=== PATIENT | female | born 1990 | race African-American/Black ===

== ENCOUNTER 2016-12-25 09:24 | Emergency (ER) | payer OTHER, MEDICAID ==
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
[2016-12-25 10:24] VITALS: BP 137/77
== END 2016-12-25 10:36 | disposition home or self-care (01) ==
LOC: ER 09:24
DX: S39.012A Strain of muscle, fascia and tendon of lower back, initial encounter (principal); R51 Headache; M54.9 Dorsalgia, unspecified; M54.5 Low back pain; Z3A.36 36 weeks gestation of pregnancy; V89.2XXA Person injured in unspecified motor-vehicle accident, traffic, initial encounter
CPT/HCPCS: 99283

== ENCOUNTER 2016-12-25 10:29 | Outpatient (CLI) | payer MEDICAID ==
[2016-12-25] MEDS ORDERED: ACETAMINOPHEN 325 MG TABLET ONE (11:31)
[2016-12-25] MEDS ORDERED: ACETAMINOPHEN 325 MG TABLET PO ONE (11:31)
[2016-12-25 11:58] LABS: APPEARANCE,URINE CLEAR; BILIRUBIN,URINE NEGATIVE (NEGATIVE); GLUCOSE, URINE NEGATIVE (NEGATIVE); KETONES,URINE NEGATIVE (NEGATIVE); LEUKOCYTE ESTERASE,URINE NEGATIVE (NEGATIVE); NITRITE,URINE NEGATIVE (NEGATIVE); PROTEIN,URINE NEGATIVE (NEGATIVE); URINE SPECIFIC GRAVITY 1.008; UROBILINOGEN,URINE NEGATIVE mg/dL (<2.0)
[2016-12-25 12:11] LABS: URINE BARBITURATES SCREEN NEGATIVE; URINE METHADONE SCREEN NEGATIVE; URINE OPIATES LOW NEGATIVE; URINE PHENCYCLIDINE SCREEN NEGATIVE
== END 2016-12-25 13:48 | disposition home or self-care (01) ==
LOC: LC 10:29
PROVIDERS: ATTEND Obstetrics & Gynecology
PROC: 4A1HXCZ Monitoring of Products of Conception, Cardiac Rate, External Approach (ICD-10-PCS; principal; 2016-12-25)
DX: O24.419 Gestational diabetes mellitus in pregnancy, unspecified control (principal); O26.893 Other specified pregnancy related conditions, third trimester; R51 Headache; R42 Dizziness and giddiness; Z3A.35 35 weeks gestation of pregnancy
CPT/HCPCS: 59025; 81001; 80307; J3490

== ENCOUNTER 2017-01-15 11:12 | Outpatient (CLI) | payer MEDICAID ==
[2017-01-15 12:09] LABS: ABSOLUTE EOSINOPHILS # (AUTO) 0.1 10^3/uL (0.0-0.6); ABSOLUTE LYMPHOCYTES (AUTO) 1.3 10^3/uL (0.5-4.7); ABSOLUTE MONOCYTES (AUTO) 0.6 10^3/uL (0.1-1.4); ABSOLUTE NEUT (AUTO) 5.4 10^3/uL (1.7-8.2); BASOPHILS % (AUTO) 0.2 % (0-2); EOSINOPHILS % (AUTO) 0.9 % (0-6); HEMATOCRIT 30.7 % (36.0-47.0); HEMOGLOBIN 10.3 g/dL (12.0-15.5); HGB HCT DIFFERENCE 0.2; LYMPHOCYTES % (AUTO) 17.9 % (13-45); MEAN CORPUSCULAR HEMOGLOBIN 25.5 pg (27.0-33.4); MEAN CORPUSCULAR HGB CONC 33.6 g/dL (32.0-36.0); MEAN CORPUSCULAR VOLUME 76 fl (80-97); RED BLOOD COUNT 4.04 10^6/uL (3.72-5.28); RED CELL DISTRIBUTION WIDTH 15.3 % (11.5-14.0); WHITE BLOOD COUNT 7.4 10^3/uL (4.0-10.5)
[2017-01-15 12:28] LABS: ALANINE AMINOTRANSFERASE 15 U/L (9-52); ALBUMIN 3.6 g/dL (3.5-5.0); ALKALINE PHOSPHATASE 143 U/L (38-126); ANION GAP 12 (5-19); ASPARTATE AMINO TRANSFERASE 21 U/L (14-36); BILIRUBIN,DIRECT 0.3 mg/dL (0.0-0.4); BILIRUBIN,TOTAL 0.6 mg/dL (0.2-1.3); BLOOD UREA NITROGEN 4 mg/dL (7-20); CALCIUM 9.4 mg/dL (8.4-10.2); CARBON DIOXIDE 20 mmol/L (22-30); CHLORIDE 107 mmol/L (98-107); CREATININE RESULT 0.69 mg/dL (0.52-1.25); GLUCOSE 91 mg/dL (75-110); LDH 451 U/L (313-618); POTASSIUM 3.8 mmol/L (3.6-5.0); SODIUM 138.6 mmol/L (137-145); TOTAL PROTEIN 6.7 g/dL (6.3-8.2); URIC ACID 5.3 mg/dL (2.5-6.2)
[2017-01-15 12:29] LABS: APPEARANCE,URINE CLEAR; BILIRUBIN,URINE NEGATIVE (NEGATIVE); GLUCOSE, URINE NEGATIVE (NEGATIVE); KETONES,URINE NEGATIVE (NEGATIVE); LEUKOCYTE ESTERASE,URINE NEGATIVE (NEGATIVE); NITRITE,URINE NEGATIVE (NEGATIVE); PROTEIN,URINE NEGATIVE (NEGATIVE); URINE SPECIFIC GRAVITY 1.005; UROBILINOGEN,URINE NEGATIVE mg/dL (<2.0)
[2017-01-15 12:50] LABS: URINE BARBITURATES SCREEN NEGATIVE; URINE METHADONE SCREEN NEGATIVE; URINE OPIATES LOW NEGATIVE; URINE PHENCYCLIDINE SCREEN NEGATIVE
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
[2017-01-15] MEDS ORDERED: EPHEDRINE SULFATE INJ 50 MG/1 ML AMPULE ONE (15:57)
[2017-01-15] MEDS ORDERED: OXYTOCIN/NORMAL SALINE 20 UNIT/1,000 ML RTUINJ ONE (15:57)
[2017-01-15] MEDS ORDERED: OXYTOCIN 10 UNIT/ML VIAL ONE (15:57)
[2017-01-15] MEDS ORDERED: FENTANYL CITRATE INJ/PF 100 MCG/2 ML AMPUL ONE (15:58)
[2017-01-15] MEDS ORDERED: MIDAZOLAM 2 MG/2 ML INJ ONE (15:58)
== END 2017-01-15 12:59 | disposition home or self-care (01) ==
LOC: LC 11:12
PROVIDERS: ATTEND Obstetrics & Gynecology
PROC: 4A1HXCZ Monitoring of Products of Conception, Cardiac Rate, External Approach (ICD-10-PCS; principal; 2017-01-15)
DX: O13.3 Gestational [pregnancy-induced] hypertension without significant proteinuria, third trimester (principal); Z3A.38 38 weeks gestation of pregnancy
CPT/HCPCS: 59025; 36415; 83615; 84550; 85025; 80053; 81001; 80307; J2250; J3490; J3010; J2590 ×2

== ENCOUNTER 2017-01-15 14:24 | Inpatient (IN) | payer MEDICAID ==
[2017-01-15] MEDS ORDERED: ONDANSETRON HCL INJ/PF 4 MG/2 ML SDV ONE (15:33)
[2017-01-15] MEDS ORDERED: KETOROLAC TROMETHAMINE 60 MG/2 ML SDV ONE (15:33)
[2017-01-15] MEDS ORDERED: METOCLOPRAMIDE HCL INJ/PF 10 MG/2 ML SDV ONE (15:33)
[2017-01-15] MEDS ORDERED: DEXAMETHASONE SOD PHOSPHATE INJ 4 MG/1 ML VIAL ONE (15:33)
[2017-01-15] MEDS ORDERED: CEFAZOLIN 2 GM/D5W RTU 2 GM/50 ML RTUPB IV ONE (15:44)
[2017-01-15] MEDS ORDERED: CITRIC ACID/SODIUM CITRATE ORAL SOLN 15 ML UDCUP ONE (15:44)
[2017-01-15] MEDS ORDERED: DIPHENHYDRAMINE HCL 50 MG/ML VIAL IV PRN (16:26)
[2017-01-15] MEDS ORDERED: PROMETHAZINE HCL INJ 25 MG/1 ML VIAL IV PRN ×3 (16:26→18:35)
[2017-01-15] MEDS ORDERED: MEPERIDINE HCL/PF INJ 25 MG/1 ML DISP.SYRIN IV PRN (16:26)
[2017-01-15] MEDS ORDERED: FENTANYL CITRATE INJ/PF 100 MCG/2 ML AMPUL IV PRN ×3 (16:26)
[2017-01-15] MEDS ORDERED: MORPHINE SULFATE 10 MG/ML INJ IV PRN (16:26)
[2017-01-15] MEDS ORDERED: ONDANSETRON HCL INJ/PF 4 MG/2 ML SDV IV PRN (16:26)
[2017-01-15] MEDS ORDERED: ACETAMINOPHEN 100 ML IV ONE (17:05)
--- NOTE | 2017-01-15 18:02 | L&D Current Admission ---
Current Admit Datetime Report Generated by CPN: 01/15/2017 18:00 ADMISSION INFORMATION Current Admit Date/Time: 01/15/2017 14:18 (01/15/2017 14:18:Doris Michele RN) Reason for Admission: Repeat Section (01/15/2017 14:18:Doris Michele RN) EGA per Dates: 38.0 (01/15/2017 14:18:QS system process) Method of Arrival: Wheelchair (01/15/2017 14:18:ALBINO Arnold) Admitted From: Dr. Office (01/15/2017 14:18:Doris Michele RN) Reason for Induction: Not Applicable (01/15/2017 14:18:ALBINO Arnold) Records Available: Yes (01/15/2017 14:18:Doris Michele RN) General Admission Information: Reviewed; Updated; Confirmed (01/15/2017 14:18:ALBINO Arnold) BELONGINGS/ADVANCED DIRECTIVES Comments Regarding Disposition: See [facility] valuables consent (01/15/2017 14:18:ALBINO Arnold)
--- NOTE | 2017-01-15 18:02 | L&D General Admission ---
General Admit Datetime Report Generated by CPN: 01/15/2017 18:00 INFORMATION Patient Age: 26 (11/19/2016 11:32:QS system process) EDC: 01/29/2017 00:00 (12/25/2016 10:55:Viktoriya Garcia RN) : 2 (12/25/2016 10:55:Doris Michele RN) Para: 1 (12/25/2016 10:55:Doris Michele RN) Term: 1 (12/25/2016 10:55:ALBINO Arnold) : 0 (12/25/2016 10:55:ALBINO Arnold) Spontaneous Abortions: 0 (12/25/2016 10:55:ALBINO Arnold) Induced Abortions: 0 (12/25/2016 10:55:ALBINO Arnold) Livin (12/25/2016 10:55:ALBINO Arnold) Cesareans: 1 (12/25/2016 10:55:ALBINO Arnold) VBACs: 0 (12/25/2016 10:55:ALBINO Arnold) Ectopic: 0 (12/25/2016 10:55:Ara Larkin RN) Multiple Births: 0 (12/25/2016 10:55:ALBINO Arnold) Baby, Number in Womb: 1 (12/25/2016 10:55:ALBINO Arnold) CARE Primary 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 Farm Manager[facility] (12/25/2016 10:55:Negar Tom RN) Adequate Care: Yes (12/25/2016 10:55:Negar Tom RN) Prepregnancy Weight (lb): 193 (12/25/2016 10:55:Negar Tom RN) Prepregnancy Weight (kg): 87.7 (12/25/2016 10:55:QS system process) Height (in): 65 (12/25/2016 11:02:QS system process) ALLERGIES Medication Allergy: No (12/25/2016 10:55:Negar Tom RN) Medication Allergies: No Known Allergies (01/15/2017) (01/15/2017 11:48:QS system process) Latex Allergy: No Latex Allergies (12/25/2016 10:55:Negar Tom RN) COMMUNICATION Primary Language: Taiwanese (12/25/2016 10:55:Negar Tom RN) Medical Tx Preferred Language: Taiwanese (12/25/2016 10:55:Negar Tom RN) DEMOGRAPHICS Address: [address] [place] [address], [address] [place] [address] (12/25/2016 10:30:QS system process) Zipcode: [address] (12/25/2016 10:30:QS system process) Home (11/19/2016 11:32:QS system process) SSN: [id number] (11/19/2016 11:32:QS system process) Next of Kin Name: SHIRLEY POON (11/19/2016 11:32:QS system process) Next of Kin (11/19/2016 11:32:QS system process) Next of Kin Relationship: SPO (11/19/2016 11:32:QS system process) Date of : 1990 (11/19/2016 11:32:QS system process) Marital Status: (11/19/2016 11:32:QS system process) Sex: Female (11/19/2016 11:32:QS system process) Race: (11/19/2016 11:32:QS system process) Ethnicity: Non- or (11/19/2016 11:32:QS system process) Methodist: None (11/19/2016 11:32:QS system process) DRUG AND ALCOHOL USE Alcohol: No (12/25/2016 10:55:Negar Tom RN) Cigarettes: Former Smoker. [id number] (12/25/2016 10:55:Negar Tom RN) Marijuana: Yes (12/25/2016 10:55:Negar Tom RN) Cocaine: No (12/25/2016 10:55:Negar Tom RN) Other Illicit Drugs: No (12/25/2016 10:55:Negar Tom RN) VACCINE HISTORY Influenza Vaccine: Yes (12/25/2016 10:55:Negar Tom RN) Tetanus Vaccine: Yes (12/25/2016 10:55:Negar Tom RN) Hepatitis B Vaccine: Yes (12/25/2016 10:55:Negar Tom RN) Certified Dialysis Technician: [facility] (12/25/2016 10:55:Doris Michele RN) Feeding Preference: Both (12/25/2016 10:55:Negar Tom RN) Benefit of Breast Feed Discussed: Yes (12/25/2016 10:55:Negar Tom RN) Circumcision: N/A (12/25/2016 10:55:Negar Tom RN) Classes Attended: No (12/25/2016 10:55:Negar Tom RN) Tubal Ligation: No (12/25/2016 10:55:Negar Tom RN) Tubal Authorization Signed: N/A (12/25/2016 10:55:Negar Tom RN) Consent: N/A (12/25/2016 10:55:Negar Tom RN) Consent Signed: N/A (12/25/2016 10:55:Negar Tom RN) Pain Management Plans: None (12/25/2016 10:55:Negar Tom RN) Plans for Labor and Delivery: None (12/25/2016 10:55:Negar Tom RN) Support Person: Shirley Poon (12/25/2016 10:55:Negar Tom RN) Support Person Relationship: (12/25/2016 10:55:Negar Tom RN) Cultural/Spritual Practice: No (12/25/2016 10:55:ALBINO Arnold) Spir/Cult Dietary Needs: No (12/25/2016 10:55:ALBINO Arnold) LIVING SITUATION/DISCHARGE PLAN Living Arrangements: House (12/25/2016 10:55:Negar Tom RN) Adequate Access to:: Electric; Heat; Refrigeration; Plumbing/Running water; Phone; Transportation (12/25/2016 10:55:Negar Tom RN) WIC Program: Yes (12/25/2016 10:55:Negar Tom RN) Discharge Software Applications Designer Person: Shirley Poon (12/25/2016 10:55:Negar Tom RN) Person to Help after Discharge: Shirley Poon (12/25/2016 10:55:Negar Tom RN) Currently Using Commun Resources: Yes (12/25/2016 10:55:Negar Tom RN) Specify Current Resource Used: Medicaid (12/25/2016 10:55:Negar Tom RN) Outside Agency/Centerless Grinder Set Up Operator: Yes (12/25/2016 10:55:Negar Tom RN) Car Seat for Discharge: Yes (12/25/2016 10:55:Negar Tom RN) Adoption Requested: No (12/25/2016 10:55:Negar Tom RN) Pt Contact w/ Post : N/A (12/25/2016 10:55:Neagr Tom RN) LABS Blood Type: B Positive (12/25/2016 10:55:Doris Michele RN) Antibody Screen: negative (12/25/2016 10:55:Doris Michele RN) Hemoglobin: 10.3 L (01/15/2017 11:35:QS system process) Hematocrit: 30.7 L (01/15/2017 11:35:QS system process) MCV: 76 L (01/15/2017 11:35:QS system process) Group Beta Strep: negative (12/25/2016 10:55:Doris Michele RN) Gonorrhea: Negative (12/25/2016 10:55:Doris Michele RN) Chlamydia: Negative (12/25/2016 10:55:Doris Michele RN) RPR/VDRL: Nonreactive (12/25/2016 10:55:Doris Michele RN) Hepatitis B: Negative (12/25/2016 10:55:Doris Michele RN) Rubella: Immune (12/25/2016 10:55:Doris Michele RN) OB/PREVIOUS HISTORY Previous Procedures: Ultrasound; NST (12/25/2016 10:55:Doris Michele RN) Current Procedures: Ultrasound; NST (12/25/2016 10:55:Doris Michele RN) History of Previous : No (12/25/2016 10:55:Doris Michele RN) History of Gestational Diabetes: Yes (12/25/2016 10:55:Doris Michele RN) History of PIH: No (12/25/2016 10:55:Doris Michele RN) History of Incompetent Cervix: No (12/25/2016 10:55:Doris Michele RN) History of Placenta Previa/Abrup: No (12/25/2016 10:55:Doris Michele RN) History of Macrosomia: No (12/25/2016 10:55:Doris Michele RN) History of IUGR: No (12/25/2016 10:55:Doris Michele RN) History of Hemorrhage: No (12/25/2016 10:55:Doris Michele RN) History of Loss/Stillborn: No (12/25/2016 10:55:Doris Michele RN) History of : No (12/25/2016 10:55:Doris Michele RN) History of D (Rh) Sensitization: No (12/25/2016 10:55:Doris Michele RN) History Recurrent Loss/Stillborn: No (12/25/2016 10:55:Doris Michele RN) History Depression/PP Depression: No (12/25/2016 10:55:Doris Michele RN) History of Uterine Anomaly/NICOLETTE: No (12/25/2016 10:55:Doris Michele RN) History of Infertility: No (12/25/2016 10:55:Doris Michele RN) History of ART Treatment: No (12/25/2016 10:55:Doris Michele RN) History of NICOLETTE: No (12/25/2016 10:55:Doris Michele RN) Comments Obstetrical History: G1: c section 2010 G2: current (12/25/2016 10:55:Doris Michele RN) MEDICAL HISTORY Med Hx Diabetes: No (12/25/2016 10:55:Doris Michele RN) Med Hx Hypertension: No (12/25/2016 10:55:Doris Michele RN) Med Hx Heart Disease: No (12/25/2016 10:55:Doris Michele RN) Med Hx Autoimmune Disorder: No (12/25/2016 10:55:Doris Michele RN) Med Hx Kidney Disease/UTI: No (12/25/2016 10:55:Doris Michele RN) Med Hx Neurologic/Epilepsy: No (12/25/2016 10:55:Doris Michele RN) Med Hx Psychiatric Disorders: No (12/25/2016 10:55:Doris Michele RN) Med Hx Hepatitis/Liver Disease: No (12/25/2016 10:55:Doris Michele RN) Med Hx Varicosities/Phlebitis: No (12/25/2016 10:55:Doris Michele RN) Med Hx Thyroid Dysfunction: No (12/25/2016 10:55:Doris Michele RN) Med Hx Trauma/Violence: No (12/25/2016 10:55:Doris Michele RN) Med Hx Blood Transfusion: No (12/25/2016 10:55:Doris Michele RN) Med Hx Pulmonary (Asthma,TB): No (12/25/2016 10:55:Doris Michele RN) Med Hx Breast: No (12/25/2016 10:55:Doris Michele RN) Med Hx CRNP Surgery: No (12/25/2016 10:55:Doris Michele RN) Med Hx Hospitalization/Surgery: No (12/25/2016 10:55:Doris Michele RN) Med Hx Anesthetic Complications: No (12/25/2016 10:55:Doris Michele RN) Med Hx Abnormal Pap Smear: No (12/25/2016 10:55:Doris Michele RN) Other Medical Diseases: No (12/25/2016 10:55:Doris Michele RN) Med Hx Significant Family Hx: No (12/25/2016 10:55:Doris Michele RN) INFECTIOUS HISTORY Inf Hx Gonorrhea: No (12/25/2016 10:55:Doris Michele RN) Inf Hx Chlamydia: No (12/25/2016 10:55:Doris Michele RN) Inf Hx Syphilis: No (12/25/2016 10:55:Doris Michele RN) Inf Hx HIV/AIDS: No (12/25/2016 10:55:Doris Michele RN) Inf Hx Human Papilloma Virus: No (12/25/2016 10:55:Doris Michele RN) Inf Hx Pt/Partner Genital Herpes: No (12/25/2016 10:55:Doris Michele RN) Inf Hx Tuberculosis/Exposure: No (12/25/2016 10:55:Doris Michele RN) Inf Hx Hepatitis B,C: No (12/25/2016 10:55:Doris Michele RN) Inf Hx Rash or Viral Illness: No (12/25/2016 10:55:Doris Michele RN) GENETIC HISTORY Gen Hx Age >=35 at STEPHANIE: No (12/25/2016 10:55:Doris Michele RN) Gen Hx Thalassemia: No (12/25/2016 10:55:Doris Michele RN) Gen Hx Congenital Heart Defect: No (12/25/2016 10:55:Doris Michele RN) Gen Hx Neural Tube Defect: No (12/25/2016 10:55:Doris Michele RN) Gen Hx Down's Syndrome: No (12/25/2016 10:55:Doris Michele RN) Gen Hx Branden-Sachs: No (12/25/2016 10:55:Doris Michele RN) Gen Hx Garrett: No (12/25/2016 10:55:Doris Michele RN) Gen Hx Familial Dysautonomia: No (12/25/2016 10:55:Doris Michele RN) Gen Hx Sickle Cell Disease/Trait: No (12/25/2016 10:55:Doris Michele RN) Gen Hx Hemophilia/Blood Disorder: No (12/25/2016 10:55:Doris Michele RN) Gen Hx Muscular Dystrophy: No (12/25/2016 10:55:Doris Michele RN) Gen Hx Cystic Fibrosis: No (12/25/2016 10:55:Doris Michele RN) Gen Hx Huntingtons Chorea: No (12/25/2016 10:55:Doris Michele RN) Gen Hx Mental Retardation/Autism: No (12/25/2016 10:55:Doris Michele RN) Gen Hx Tested for Fragile X: No (12/25/2016 10:55:Doris Michele RN) Gen Hx Other Inher/Chromosomal: No (12/25/2016 10:55:Doris Michele RN) Gen Hx Maternal Metabolic DO: No (12/25/2016 10:55:Doris Michele RN) Gen Hx Pt Father or FOB Defect: No (12/25/2016 10:55:Doris Michele RN) Gen Hx Other Genetic History: No (12/25/2016 10:55:Doris Michele RN) Gen Hx Drugs/Meds since LMP: No (12/25/2016 10:55:Doris Michele RN)
[2017-01-15] MEDS ORDERED: MEPERIDINE HCL/PF INJ 25 MG/1 ML DISP.SYRIN ONE (18:12)
[2017-01-15] MEDS ORDERED: MORPHINE SULFATE 10 MG/ML INJ ONE (18:29)
[2017-01-15] MEDS ORDERED: DIPH/PERTUSS(ACELL)/TETANUS VAC/PF 0.5 ML SYR (>=10YO) IM PRN (18:35)
[2017-01-15] MEDS ORDERED: SIMETHICONE 80 MG TAB.CHEW PO PRN (18:35)
[2017-01-15] MEDS ORDERED: OXYCODONE-ACETAMINOPHEN 5-325 MG TABLET PO PRN (18:35)
[2017-01-15] MEDS ORDERED: RINGERS SOLUTION,LACTATED 1,000 ML IV PRN (18:35)
[2017-01-15] MEDS ORDERED: OXYTOCIN/NORMAL SALINE 1,000 ML IV PRN (18:35)
[2017-01-15] MEDS ORDERED: ACETAMINOPHEN 325 MG TABLET PO PRN (18:35)
[2017-01-15] MEDS ORDERED: MEASLES,MUMPS&RUBELLA VACC/PF 0.5 ML VIAL SUBCUT PRN (18:35)
[2017-01-15] MEDS: HYDROMORPHONE HCL INJ/PF 2 MG/ML AMPULE IV PRN ×2 (20:22→23:33)
[2017-01-15] MEDS: KETOROLAC TROMETHAMINE INJ/PF 30 MG/1 ML SDV IV SCH (22:13)
[2017-01-16] MEDS: OXYCODONE-ACETAMINOPHEN 5-325 MG TABLET PO PRN ×4 (02:03→22:08)
[2017-01-16] MEDS: HYDROMORPHONE HCL INJ/PF 2 MG/ML AMPULE IV PRN ×2 (04:36→20:14)
[2017-01-16] MEDS: KETOROLAC TROMETHAMINE INJ/PF 30 MG/1 ML SDV IV SCH ×2 (06:13→14:02)
[2017-01-16 06:51] LABS: HEMATOCRIT 22.4 % (36.0-47.0); HGB HCT DIFFERENCE -0.8; MEAN CORPUSCULAR HEMOGLOBIN 24.7 pg (27.0-33.4); MEAN CORPUSCULAR HGB CONC 32.4 g/dL (32.0-36.0); MEAN CORPUSCULAR VOLUME 76 fl (80-97); RED BLOOD COUNT 2.93 10^6/uL (3.72-5.28); RED CELL DISTRIBUTION WIDTH 14.6 % (11.5-14.0); WHITE BLOOD COUNT 14.6 10^3/uL (4.0-10.5)
[2017-01-16 07:00] LABS: HEMOGLOBIN 7.2 g/dL (12.0-15.5)
--- NOTE | 2017-01-16 08:07 | PDOC PROGRESS REPORT ---
Subjective-OB Subjective: Post Delivery Day: 1 26 year old. pt became dizzy and light headed when she got up first time, states she feels light headed. States pain well controlled, lochia is stable, has not been up to void. Physical Exam (OB) Vital Signs: Temp Pulse Resp BP Pulse Ox 97.6 F 73 18 133/78 H 100 01/16/17 04:20 01/16/17 04:20 01/16/17 04:20 01/16/17 04:20 01/16/17 04:20 Intake & Output 01/15/17 01/16/17 01/17/17 06:59 06:59 06:59 Output Total 2400 Balance -2400 Weight 93 kg - Dressing Removed: No Incision: Dressing - Lochia Lochia Amount: Scant < 10 ml Lochia Color: Rubra/Red - Abdomen Description: Tender, Soft, Round Hernia Present: No Fundal Description: Firm, Midline Fundal Height: u/u - u/2 Objective-Diagnostic Laboratory: 01/16/17 06:11 01/15/17 01/16/17 15:20 06:11 WBC 14.6 H RBC 2.93 L Hgb 7.2 L D Hct 22.4 L MCV 76 L MCH 24.7 L MCHC 32.4 RDW 14.6 H Plt Count 233 Blood Type B POSITIVE Antibody Screen NEGATIVE Assessment and Plan(PN) - Assessment and Plan (1) Status post repeat low transverse section Is this a current diagnosis for this admission?: YesPlan: routine postop care (2) Acute blood loss anemia Is this a current diagnosis for this admission?: YesPlan: 2 units prbc ordered continue to monitor repeat cbc in am - Time Spent with Patient Time with patient: Less than 15 minutes Critical Time spent with patient: Less than 15 minutes Medications reviewed and adjusted accordingly: Yes - Disposition Anticipated Discharge: Home Within: within 24 hours
[2017-01-16] MEDS: PRENATAL VITAMIN W-O CA NO5/FE FUMARATE/FA CAPSULE PO SCH (10:23)
[2017-01-16] MEDS: DOCUSATE SODIUM 100 MG CAPSULE PO SCH ×2 (10:24→17:14)
[2017-01-16 18:16] LABS: ABSOLUTE LYMPHOCYTES (AUTO) 1.7 10^3/uL (0.5-4.7); ABSOLUTE NEUT (AUTO) 9.4 10^3/uL (1.7-8.2); BASOPHILS % (AUTO) 0.3 % (0-2); EOSINOPHILS % (AUTO) 0.1 % (0-6); HEMATOCRIT 24.7 % (36.0-47.0); HGB HCT DIFFERENCE -0.7; LYMPHOCYTES % (AUTO) 14.3 % (13-45); MEAN CORPUSCULAR HEMOGLOBIN 24.8 pg (27.0-33.4); MEAN CORPUSCULAR HGB CONC 32.4 g/dL (32.0-36.0); MEAN CORPUSCULAR VOLUME 77 fl (80-97); MONOCYTES % (AUTO) 8.3 % (3-13); RED BLOOD COUNT 3.23 10^6/uL (3.72-5.28); RED CELL DISTRIBUTION WIDTH 15.7 % (11.5-14.0); WHITE BLOOD COUNT 12.2 10^3/uL (4.0-10.5)
[2017-01-16 18:34] LABS: ALANINE AMINOTRANSFERASE 21 U/L (9-52); ALBUMIN 2.7 g/dL (3.5-5.0); ALKALINE PHOSPHATASE 85 U/L (38-126); ANION GAP 10 (5-19); ASPARTATE AMINO TRANSFERASE 20 U/L (14-36); BILIRUBIN,TOTAL 0.6 mg/dL (0.2-1.3); BLOOD UREA NITROGEN 6 mg/dL (7-20); CALCIUM 8.9 mg/dL (8.4-10.2); CARBON DIOXIDE 22 mmol/L (22-30); CHLORIDE 101 mmol/L (98-107); GLUCOSE 115 mg/dL (75-110); POTASSIUM 4.4 mmol/L (3.6-5.0); SODIUM 132.7 mmol/L (137-145); TOTAL PROTEIN 4.8 g/dL (6.3-8.2)
[2017-01-16] MEDS ORDERED: RINGERS SOLUTION,LACTATED 1,000 ML IV ONE (19:45)
[2017-01-17] MEDS ORDERED: IBUPROFEN 800 MG TABLET PO SCH
[2017-01-17 01:16] LABS: HEMATOCRIT 20.9 % (36.0-47.0); HGB HCT DIFFERENCE 0.1; MEAN CORPUSCULAR HEMOGLOBIN 25.5 pg (27.0-33.4); MEAN CORPUSCULAR HGB CONC 33.7 g/dL (32.0-36.0); MEAN CORPUSCULAR VOLUME 76 fl (80-97); RED BLOOD COUNT 2.76 10^6/uL (3.72-5.28); RED CELL DISTRIBUTION WIDTH 15.4 % (11.5-14.0); WHITE BLOOD COUNT 10.4 10^3/uL (4.0-10.5)
--- NOTE | 2017-01-17 01:51 | PDOC PROGRESS REPORT ---
Subjective Progress Note for:: 01/17/17 Subjective:: Pt seen for post op pain and decreased urine output yesterday. Physical Exam - Physical Exam Vital Signs: Temp Pulse Resp BP Pulse Ox 97.9 F 77 17 120/68 100 01/16/17 23:42 01/16/17 23:42 01/16/17 23:42 01/16/17 23:42 01/16/17 23:42 Intake & Output 01/15/17 01/16/17 01/17/17 06:59 06:59 06:59 Intake Total 2705 Output Total 2400 700 Balance -2400 2004 Weight 93 kg GI/Abdominal exam: PRESENT: tenderness - abd tender and distended but BS present Result Laboratory Results: 01/17/17 01:05 01/16/17 18:05 01/15/17 01/16/17 01/16/17 15:20 06:11 18:05 WBC 14.6 H 12.2 H RBC 2.93 L 3.23 L Hgb 7.2 L D 8.0 L Hct 22.4 L 24.7 L MCV 76 L 77 L MCH 24.7 L 24.8 L MCHC 32.4 32.4 RDW 14.6 H 15.7 H Plt Count 233 160 Seg Neutrophils % 77.0 Lymphocytes % 14.3 Monocytes % 8.3 Eosinophils % 0.1 Basophils % 0.3 Absolute Neutrophils 9.4 H Absolute Lymphocytes 1.7 Absolute Monocytes 1.0 Absolute Eosinophils 0.0 Absolute Basophils 0.0 Sodium Potassium Chloride Carbon Dioxide Anion Gap BUN Creatinine Est GFR ( Amer) Est GFR (Non-Af Amer) Glucose Calcium Total Bilirubin AST ALT Alkaline Phosphatase Total Protein Albumin Blood Type B POSITIVE Antibody Screen NEGATIVE 01/16/17 01/17/17 18:05 01:05 WBC 10.4 RBC 2.76 L Hgb 7.0 L Hct 20.9 L MCV 76 L MCH 25.5 L MCHC 33.7 RDW 15.4 H Plt Count 138 L Seg Neutrophils % Lymphocytes % Monocytes % Eosinophils % Basophils % Absolute Neutrophils Absolute Lymphocytes Absolute Monocytes Absolute Eosinophils Absolute Basophils Sodium 132.7 L Potassium 4.4 Chloride 101 Carbon Dioxide 22 Anion Gap 10 BUN 6 L Creatinine 0.80 Est GFR ( Amer) > 60 Est GFR (Non-Af Amer) > 60 Glucose 115 H Calcium 8.9 Total Bilirubin 0.6 AST 20 ALT 21 Alkaline Phosphatase 85 Total Protein 4.8 L Albumin 2.7 L Blood Type Antibody Screen Impressions: Abdomen/Pelvis CT 01/16/17 00:00 IMPRESSION: Postoperative change related to recent with 11.8 cm intramuscular hematoma within the right rectus. Additional note is made of mild to moderate free fluid throughout the abdomen and pelvis which may represent ascites or evolving blood products. No evidence of active intra- abdominal bleeding. Correlate with patient's hemoglobin and hematocrit. Complex material and gas seen within the endometrial cavity concerning for infection. Correlate with fever/elevated white blood cell count. Assessment & Plan - Diagnosis (1) Rectus sheath hematoma Is this a current diagnosis for this admission?: Yes (2) Acute blood loss anemia Is this a current diagnosis for this admission?: Yes (3) Status post repeat low transverse section Is this a current diagnosis for this admission?: Yes - Plan Summary Plan Summary: Yesterday am pt with symptomatic anemia=transfused 2 units prbcs...had decreased UA through course of day requiring ivf bolus as well. Vitals and UO now improved. CT obtained that showed rectussheath hematoma and mild to mod intraperitoneal fluid. H/H still 04/15 but suspecct now stabilized. Will check coags. Holding nsaids. Will transfuse 1 unit prc more and recheck cbc after that.
[2017-01-17 02:13] LABS: PARTIAL THROMBOPLASTIN TIME 26.1 SEC (23.5-35.8); PROTHROMBIN TIME 13.6 SEC (11.4-15.4)
[2017-01-17] MEDS ORDERED: ONDANSETRON HCL INJ/PF 4 MG/2 ML SDV ONE (02:16)
[2017-01-17] MEDS ORDERED: ONDANSETRON HCL INJ/PF 4 MG/2 ML SDV IV PRN (02:19)
[2017-01-17] MEDS ORDERED: BISACODYL 10 MG SUPP.RECT PR ONE (03:00)
[2017-01-17] MEDS: HYDROMORPHONE HCL INJ/PF 2 MG/ML AMPULE IV PRN (06:08)
[2017-01-17 07:28] LABS: HEMATOCRIT 22.7 % (36.0-47.0); HGB HCT DIFFERENCE 0.1; MEAN CORPUSCULAR HEMOGLOBIN 25.8 pg (27.0-33.4); MEAN CORPUSCULAR HGB CONC 33.4 g/dL (32.0-36.0); MEAN CORPUSCULAR VOLUME 77 fl (80-97); RED BLOOD COUNT 2.93 10^6/uL (3.72-5.28); RED CELL DISTRIBUTION WIDTH 15.7 % (11.5-14.0); WHITE BLOOD COUNT 9.1 10^3/uL (4.0-10.5)
[2017-01-17 07:46] LABS: HEMOGLOBIN 7.6 g/dL (12.0-15.5)
--- NOTE | 2017-01-17 09:07 | PDOC PROGRESS REPORT ---
Subjective-OB Subjective: Post Delivery Day: 2 26 year old. Denies any needs at this time, doing better since blood transfusion, folley in place, has had bowel movement, pain better. Physical Exam (OB) Vital Signs: Temp Pulse Resp BP Pulse Ox 98.6 F 79 16 134/78 H 97 01/17/17 05:55 01/17/17 05:55 01/17/17 05:55 01/17/17 05:55 01/17/17 05:55 Intake & Output 01/16/17 01/17/17 01/18/17 06:59 06:59 06:59 Intake Total 4445 Output Total 2400 2800 Balance -2400 1645 Weight 93 kg - PIH/Pre-Eclampsia DTR's: 1 + Clonus: Negative Headache: Absent Epigastric Pain: No Visual Changes: No - Dressing Removed: Yes - sutures open to air Incision: Well Approximated Closure Type: Sutures - Bilateral Tubal Ligation Dressing Removed: No - Lochia Lochia Amount: Small 10-25 ml Lochia Color: Rubra/Red - Abdomen Description: Tender, Firm, Distended Hernia Present: No Fundal Description: Firm, Midline Describe if Not Midline: unable to feel fundus with distended abdomen, no oksana/ MD wendy aware Fundal Height: u/u - u/2 Objective-Diagnostic Laboratory: 01/17/17 07:15 01/16/17 18:05 01/15/17 01/16/17 01/16/17 15:20 18:05 18:05 WBC 12.2 H RBC 3.23 L Hgb 8.0 L Hct 24.7 L MCV 77 L MCH 24.8 L MCHC 32.4 RDW 15.7 H Plt Count 160 Seg Neutrophils % 77.0 Lymphocytes % 14.3 Monocytes % 8.3 Eosinophils % 0.1 Basophils % 0.3 Absolute Neutrophils 9.4 H Absolute Lymphocytes 1.7 Absolute Monocytes 1.0 Absolute Eosinophils 0.0 Absolute Basophils 0.0 Sodium 132.7 L Potassium 4.4 Chloride 101 Carbon Dioxide 22 Anion Gap 10 BUN 6 L Creatinine 0.80 Est GFR ( Amer) > 60 Est GFR (Non-Af Amer) > 60 Glucose 115 H Calcium 8.9 Total Bilirubin 0.6 AST 20 ALT 21 Alkaline Phosphatase 85 Total Protein 4.8 L Albumin 2.7 L Blood Type B POSITIVE Antibody Screen NEGATIVE 01/17/17 01/17/17 01:05 07:15 WBC 10.4 9.1 RBC 2.76 L 2.93 L Hgb 7.0 L 7.6 L Hct 20.9 L 22.7 L MCV 76 L 77 L MCH 25.5 L 25.8 L MCHC 33.7 33.4 RDW 15.4 H 15.7 H Plt Count 138 L 131 L Seg Neutrophils % Lymphocytes % Monocytes % Eosinophils % Basophils % Absolute Neutrophils Absolute Lymphocytes Absolute Monocytes Absolute Eosinophils Absolute Basophils Sodium Potassium Chloride Carbon Dioxide Anion Gap BUN Creatinine Est GFR ( Amer) Est GFR (Non-Af Amer) Glucose Calcium Total Bilirubin AST ALT Alkaline Phosphatase Total Protein Albumin Blood Type Antibody Screen Assessment and Plan(PN) - Assessment and Plan (1) Status post repeat low transverse section Is this a current diagnosis for this admission?: YesPlan: routine pp care (2) Acute blood loss anemia Is this a current diagnosis for this admission?: YesPlan: ferrous sulfate - Time Spent with Patient Time with patient: Less than 15 minutes Critical Time spent with patient: Less than 15 minutes Medications reviewed and adjusted accordingly: Yes - Disposition Anticipated Discharge: Home Within: within 24 hours
[2017-01-17] MEDS: DOCUSATE SODIUM 100 MG CAPSULE PO SCH ×2 (09:12→17:19)
[2017-01-17] MEDS: PRENATAL VITAMIN W-O CA NO5/FE FUMARATE/FA CAPSULE PO SCH (09:13)
[2017-01-17] MEDS: OXYCODONE-ACETAMINOPHEN 5-325 MG TABLET PO PRN ×3 (11:50→21:08)
--- NOTE | 2017-01-17 23:39 | Admission Physical ---
Datetime Report Generated by CPN: 01/17/2017 23:39 CURRENT ADMISSION Hx Assessment: The History has been Reviewed and is Current Chief Complaint: Signs/Symptoms Gestational HTN Indication for Induction: Not Applicable; Gest. HTN/PreEclampsia/Eclampsia Indication for Induction- Other: gestational htn Admit Plan: Admit to Unit; Initiate Section Protocol ALLERGIES Medication Allergies: No Medication Allergies: No Known Allergies (01/15/2017) Medication Allergies: No Known Allergies (12/25/2016) Latex: No Latex Allergies OBSTETRICAL HISTORY EDC: 01/29/2017 00:00 : 2 Para: 1 Term: 1 : 0 SAB: 0 IAB: 0 Ectopic: 0 Livin Cesareans: 1 VBACs: 0 Multiple Births: 0 Gestational Diabetes: Yes Rh Sensitization: No Incompetent Cervix: No NICOLETTE: No Infertility: No ART Treatment: No Uterine Anomaly: No IUGR: No Hx Previous C/S: No Macrosomia: No Hx Loss/Stillborn: No PIH: No Hx : No Placenta Previa/Abruption: No Depression/PP Depression: No PTL/PROM: No Post Hemorrhage: No Current Procedures: Ultrasound; NST Obstetrical History Comments: G1: c section 2009 G2: current SEE RECORDS Alcohol: No Marijuana : Yes Cocaine: No Other Illicit Drugs: No Cigarettes: Former Smoker. [id number] MEDICAL HISTORY Diabetes: No Blood Transfusion: No Pulmonary Disease (Asthma, TB): No Breast Disease: No Hypertension: No Contact Center Specialist Surgery: No Heart Disease: No Hosp/Surgery: No Autoimmune Disorder: No Anesthetic Complications: No Kidney Disease: No Abnormal Pap Smear: No Neuro/Epilepsy: No Psychiatric Disorders: No Other Medical Diseases: No Hepatitis/Liver Disease: No Significant Family History: No Varicosities/Phlebitis: No Trauma/Violence : No Thyroid Dysfunction: No INFECTIOUS HISTORY Gonorrhea: No Genital Herpes: No Chlamydia: No Tuberculosis: No Syphilis: No Hepatitis: No HIV/AIDS Exposure: No Rash or Viral Illness: No HPV: No PHYSICAL EXAM General: Normal HEENT: Normal Neurologic: Normal Thyroid: Deferred Heart: Normal Lungs: Normal Breast: Normal Back: Normal Abdomen: Normal Genitourinary Exam: Normal Extremities: Normal DTRs: Normal Pelvic Type: Not Done Vital Signs: Reviewed MEMBRANES Membranes: Intact FETUS A EGA: 38.0 Monitoring: External US FHR- Baseline: 150 Variability: Moderate 6-25bpm Accelerations: 15X15 Decelerations: None FHR Category: Category I Presentation: Vertex Admit Comment: Pt to be admitted for repeat c/s. Pt with hx of eclampsia @ 32w with G1 and emergency c/s, GDM on glyburide, polyhdyramnios, anemia Sees mfm See record for complete medical/surgical hx GBS negative NKDA Routine c/s orders Cat 1 FHT's PLANS FOR LABOR AND DELIVERY Labor and Delivery: None Pain Management: None Feeding Preference: Both Benefit of Breast Feed Discussed: Yes Circumcision: N/A INFORMED CONSENT Assignment: Jessica Carpio MD Signature: with User ID: Jeff : with User ID: [email or web address]
[2017-01-18] MEDS: OXYCODONE-ACETAMINOPHEN 5-325 MG TABLET PO PRN ×5 (02:30→23:30)
[2017-01-18 07:04] LABS: HEMATOCRIT 22.6 % (36.0-47.0); HGB HCT DIFFERENCE 0.2; MEAN CORPUSCULAR HEMOGLOBIN 26.1 pg (27.0-33.4); MEAN CORPUSCULAR HGB CONC 33.5 g/dL (32.0-36.0); MEAN CORPUSCULAR VOLUME 78 fl (80-97); RED BLOOD COUNT 2.91 10^6/uL (3.72-5.28); RED CELL DISTRIBUTION WIDTH 15.6 % (11.5-14.0); WHITE BLOOD COUNT 7.4 10^3/uL (4.0-10.5)
[2017-01-18 07:08] LABS: HEMOGLOBIN 7.6 g/dL (12.0-15.5)
--- NOTE | 2017-01-18 08:30 | PDOC PROGRESS REPORT ---
Subjective-OB Subjective: Post Delivery Day: 3 26 year old. Denies any needs at this time, states slight abdominal tenderness and fullness, denies dizziness or light headedness, is voiding without out difficulty, pain moderately well controlled, lochia is stable. Physical Exam (OB) Vital Signs: Temp Pulse Resp BP Pulse Ox 97.7 F 74 17 134/78 H 99 01/18/17 07:19 01/18/17 07:19 01/18/17 07:19 01/18/17 07:19 01/18/17 07:19 Intake & Output 01/17/17 01/18/17 01/19/17 06:59 06:59 06:59 Intake Total 4445 2420 Output Total 2800 700 Balance 1645 1720 - PIH/Pre-Eclampsia DTR's: 1 + Clonus: Negative Headache: Absent Epigastric Pain: No Visual Changes: No - Dressing Removed: Yes Incision: Open Closure Type: [place] - Lochia Lochia Amount: Scant < 10 ml Lochia Color: Rubra/Red - Abdomen Description: Soft, Round Hernia Present: No Fundal Description: Firm, Midline Describe if Not Midline: unable to feel fundus with distended abdomen, no oksana/ MD wendy aware Fundal Height: u/u - u/2 Objective-Diagnostic Laboratory: 01/18/17 06:39 01/16/17 18:05 01/18/17 06:39 WBC 7.4 RBC 2.91 L Hgb 7.6 L Hct 22.6 L MCV 78 L MCH 26.1 L MCHC 33.5 RDW 15.6 H Plt Count 141 L Assessment and Plan(PN) - Assessment and Plan (1) Status post repeat low transverse section Is this a current diagnosis for this admission?: YesPlan: routine postop care (2) Acute blood loss anemia Is this a current diagnosis for this admission?: YesPlan: ferrous sulfate increase dietary iron s/p 3 units prbc monitor h & h - Time Spent with Patient Time with patient: Less than 15 minutes Critical Time spent with patient: Less than 15 minutes Medications reviewed and adjusted accordingly: Yes - Disposition Anticipated Discharge: Home Within: within 24 hours
[2017-01-18] MEDS: PRENATAL VITAMIN W-O CA NO5/FE FUMARATE/FA CAPSULE PO SCH (10:05)
[2017-01-18] MEDS: DOCUSATE SODIUM 100 MG CAPSULE PO SCH ×2 (10:05→17:41)
[2017-01-19] MEDS: OXYCODONE-ACETAMINOPHEN 5-325 MG TABLET PO PRN ×2 (03:44→08:23)
[2017-01-19 09:41] VITALS: BP 135/69
[2017-01-19] MEDS: DOCUSATE SODIUM 100 MG CAPSULE PO SCH (09:58)
[2017-01-19] MEDS: PRENATAL VITAMIN W-O CA NO5/FE FUMARATE/FA CAPSULE PO SCH (09:58)
--- NOTE | 2017-01-19 10:37 | PDOC DISCHARGE SUMMARY ---
Final Diagnosis Discharge Date: 01/19/17 - Final Diagnosis (1) Acute blood loss anemia Is this a current diagnosis for this admission?: Yes (2) Rectus sheath hematoma Is this a current diagnosis for this admission?: Yes (3) Status post repeat low transverse section Is this a current diagnosis for this admission?: Yes Discharge Data - Discharge Medication Home Medications: Pnv95/Iron Fum/Folic Acid [ Cap[place]] 1 each PO DAILY #30 tablet 06/05/16 Oxycodone HCl/Acetaminophen [Percocet 5-325 mg Tablet] 1 - 2 tab PO Q4 01/19/17 - Diagnosis Test Laboratory: Temp Pulse Resp BP Pulse Ox 98.1 F 63 16 135/69 H 100 01/19/17 08:02 01/19/17 09:24 01/19/17 09:24 01/19/17 09:24 01/19/17 09:24 01/16/17 01/16/17 01/17/17 06:11 18:05 01:05 RBC 2.93 L 3.23 L 2.76 L Hgb 7.2 L D 8.0 L 7.0 L Hct 22.4 L 24.7 L 20.9 L 01/17/17 01/18/17 07:15 06:39 RBC 2.93 L 2.91 L Hgb 7.6 L 7.6 L Hct 22.7 L 22.6 L - Discharge information/Instructions Discharge Activity: Activity As Tolerated, No Driving, No Lifting Over 10 Pounds , No Lifting/Push/Pulling, Pelvic Rest, No tub bath Discharge Diet: Regular Disposition: HOME, SELF-CARE Follow up with: [facility] in: 3, Days - follow up in clinic on wednesday- for staple removal and follow up rectal sheath tear
--- NOTE | 2017-01-25 09:52 | Delivery Summary ---
Del Sum A-C Datetime Report Generated by CPN: 01/25/2017 09:52 DELIVERY PERSONNEL DELIVERY PERSONNEL: [id number] Delivery Doctor:: Jessica Carpio MD Anesthesiologist:: Sowmya Guerrero MD EVICTION SPECIALIST:: Jazzmine Tafoya CRNA Labor and Delivery Nurse:: Doris Michele RNcisco network architect Nurse:: Martita Pagan RN Neonatal Nurse Practitioner:: DARSHANA Chandra Assessment Clinician/RECORDS CUSTODIAN: ST Shavonne Assessment Clinician/RECORDS CUSTODIAN: Patti Neil, FACIALIST MATERNAL INFORMATION Delivery Anesthesia: Spinal Medications After Delivery: Pitocin Drip 20 Units/1000ml NSS Meds After Delivery Comment: 20 units Pitocin in 1L NS Estimated Blood Loss (ml): 600 Maternal Complications: None Provider Comments: Repeat LTCS for PIH, repeat 38 weeks, breech, poly, bicornuate uterus. live female infant ap 8/9. complete breech presentation. bicornuate uterus. nl tubes and ovaries LABOR SUMMARY EDC: 01/29/2017 00:00 No. Babies in Womb: 1 Attempted: No Labor Anesthesia: None LABOR INFORMATION Reason for Induction: Not Applicable Group B Beta Strep: negative Antibiotics Time of Last Dose: 1600 Name of Antibiotic Given: Ancef Steroids Given: None Reason Steroids Not Administered: Not Applicable MEMBRANES Membranes Rupture Method: Artificial Rupture of Membranes: 01/15/2017 16:34 Length of Rupture (hr): 0.02 Amniotic Fluid Color: Clear Amniotic Fluid Amount: Moderate Amniotic Fluid Odor: Normal STAGES OF LABOR Stage 3 hr: 0 Stage 3 min: 1 VAGINAL DELIVERY Episiotomy: None Laceration Extension: N/A Laceration Type: None Sponge Count Correct: N/A Sharps Count Correct: N/A CSECTION DELIVERY Primary Indication: Other Other Primary Indication: repeat for pre-e Secondary Indication: Breech Presentation Other Secondary Indication: bicornuate uterus CSection Urgency: Non-Scheduled CSection Incidence: Repeat Labor: No Labor Elective: Elective CSection Incision: Lower Uterine Transverse Uterine Closure: Double-layer closure BABY A INFORMATION Delivery Date/Time: 01/15/2017 16:35 Method of Delivery: Born in Route : No : N/A Forceps: N/A Vacuum Extraction: N/A Shoulder Dystocia : No PRESENTATION/POSITION BABY A Presentation: Breech Cephalic Presentation: N/A Breech Presentation: Complete PLACENTA INFORMATION BABY A Placenta Delivery Time : 01/15/2017 16:36 Placenta Method of Delivery: Expressed Placenta Status: Delivered SCORES BABY A Heart Rate 1 min: >100 bpm Resp Effort 1 min: Good Cry Reflex Irritability 1 min: Cough or Sneeze or Pulls Away Muscle Tone 1 min: Active Motion Color 1 min: Blue/Pale Resuscitation Effort 1 min: Tactile Stimulation SCORE 1 MIN: 8 Heart Rate 5 min: >100 bpm Resp Effort 5 min: Good Cry Reflex Irritability 5 min: Cough or Sneeze or Pulls Away Muscle Tone 5 min: Active Motion Color 5 min: Body [place], Extremities Blue Resuscitation Effort 5 min: Tactile Stimulation SCORE 5 MIN: 9 INFORMATION BABY A Gestational Age at Delivery: 38.0 Gestational Status: Early Term- 37- 38.6 Weeks Outcome : Liveborn Condition : Stable Sex: Female IDENTIFICATION BABY A Verification Date/Time: 01/15/2017 16:44 ID Band Number: [id number] Mother's Name Verified: Yes RN Verifying Infant: Laci Michele, RN, MJose Pagan, RN WEIGHT/LENGTH BABY A Infant Birthweight (gm): 2830 Weight (lb): 6 Weight (oz): 4 Infant Length (in): 19.25 Length (cm): 48.90 CORD INFORMATION BABY A No. Cord Vessels: 3 Nuchal Cord : N/A Cord Blood Taken: Yes-For Eval (Mom's Blood Type - or O+) Suction: Mouth; Nose ASSESSMENT BABY A Skin to Skin: Yes BABY B INFORMATION : N/A SIGNATURES Signature: with User ID: [email or web address]
--- NOTE | 2017-01-26 22:27 | Operative Report ---
Operative Report DATE OF SURGERY: 01/17/17 PREOPERATIVE DIAGNOSIS: 38 week, mild preeclampsia, breech presentation, previous section GDMA2, polyhydramnios POSTOPERATIVE DIAGNOSIS: same, delivered, bicornuate uterus OPERATION: Repeat Low Transverse Section SURGEON: ALICIA KNAPP ANESTHESIA: Spinal TISSUE REMOVED OR ALTERED: placenta COMPLICATIONS: none ESTIMATED BLOOD LOSS: 500cc INTRAOPERATIVE FINDINGS: viable female ap 8/9. bicornuate uterus w fetus in right horn. intact placenta 3vc PROCEDURE: After appropriate consents had been obtained, the patient was taken to the operating room where regional anesthesia was placed without difficulty. The patient was prepped and draped in the normal sterile fashion in the dorsal supine position with a leftward tilt. Time out procedure was performed. Anesthesia was determined to be adequate and a pfannenstiel incision was made through the prior scar. The fascia was nicked in the midline then extended bilaterally with Wilson scissors. The fascia was elevated and then the rectus muscles dissected off sharply. The rectus muscles were then in the midline and the peritonuem identified. The peritoneum was entered sharply and extended with good visualization of the bladder. Bladder blade was inserted and the bladder flap carefully dissected off the lower uterine segment. A transverse incision was made with the scalpel then extended bilaterally in an upward outward motion across the lower uterine segment. Amniotomy revealed clear fluid. The breech was grasped and elevated easily through the incision followed by the remainder of the infant. The cord was doubly clamped and ligated. The was handed off the operative field to the waiting pediatric team. The placenta was then extracted manually intact. The uterus was exteriorized and cleansed of membranous tissue with a sponge on the gear grinding machine operator's hand. The uterine incision was then repaired using 0 vicryl in a running locked fashion. A second layer of the same suture was used to imbricate for hemastasis. The uterus was then returned to the abdomen and gutters were cleared of clots and debris. The fascial incision was closed with 0 vicryl in a running fashion to the midline. The subcutaneous layer was closed with 0 plain in a running stitch. the skin was closed with 4-0 monocryl in subcuticular running stitch. Sponge, lap and needle counts were correct. The patient was transferred to recovery in stable condition.
== END 2017-01-19 12:00 | disposition home or self-care (01) | DRG 765 ==
LOC: LR 14:24 → 2S 18:54
PROVIDERS: ADMIT Obstetrics & Gynecology; ATTEND Obstetrics & Gynecology
PROC: 10D00Z1 Extraction of Products of Conception, Low, Open Approach (ICD-10-PCS; principal; 2017-01-15)
PROC: 10907ZC Drainage of Amniotic Fluid, Therapeutic from Products of Conception, Via Natural or Artificial Opening (ICD-10-PCS; 2017-01-15)
PROC: 4A1HXCZ Monitoring of Products of Conception, Cardiac Rate, External Approach (ICD-10-PCS; 2017-01-15)
PROC: 30233N1 Transfusion of Nonautologous Red Blood Cells into Peripheral Vein, Percutaneous Approach (ICD-10-PCS; 2017-01-16)
DX: O32.1XX0 Maternal care for breech presentation, not applicable or unspecified (principal); D62 Acute posthemorrhagic anemia; O34.211 Maternal care for low transverse scar from previous cesarean delivery; O99.02 Anemia complicating childbirth; O24.429 Gestational diabetes mellitus in childbirth, unspecified control; O40.3XX0 Polyhydramnios, third trimester, not applicable or unspecified; O34.03 Maternal care for unspecified congenital malformation of uterus, third trimester; O14.04 Mild to moderate pre-eclampsia, complicating childbirth; Q51.3 Bicornate uterus; Z87.891 Personal history of nicotine dependence; Z37.0 Single live birth
CPT/HCPCS: 1961; 36415; 36430; 59025; 74177; 80053; 80307; 81001; 83615; 84550; 85025; 85027; 85610; 85730; 86592; 86850; 86900; 86901; 86920; 94799; J0131; J0690; J1100; J1170; J1885; J2175; J2250; J2270; J2405; J2590; J2765; J3010; J3490; J7120; P9016

== ENCOUNTER 2017-05-09 05:05 | Emergency (ER) | payer MEDICAID ==
[2017-05-09] MEDS ORDERED: DIPH/PERTUSS(ACELL)/TETANUS VAC/PF 0.5 ML SYR (>=10YO) IM ONE (05:34)
[2017-05-09] MEDS ORDERED: ACETAMINOPHEN 325 MG TABLET PO ONE (05:34)
--- NOTE | 2017-05-09 06:01 | RADIOLOGY REPORT (SQ) ---
EXAM DESCRIPTION: ELBOW LEFT OVER 2 VIEWS COMPLETED DATE/TIME: 05/09/2017 5:52 am REASON FOR STUDY: trauma COMPARISON: None. NUMBER OF VIEWS: Four views. TECHNIQUE: AP, lateral, and both oblique radiographic images acquired of the left elbow. LIMITATIONS: None. FINDINGS: MINERALIZATION: Normal. BONES: No acute fracture or dislocation. No worrisome bone lesions. JOINT: No effusion. SOFT TISSUES: No soft tissue swelling. No foreign body. OTHER: No other significant finding. IMPRESSION: NEGATIVE STUDY OF THE LEFT ELBOW. NO RADIOGRAPHIC EVIDENCE OF ACUTE INJURY. TECHNICAL DOCUMENTATION: JOB ID: [id number] [employer]- All Rights Reserved
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
[2017-05-09 06:32] VITALS: BP 154/102
== END 2017-05-09 06:31 | disposition home or self-care (01) ==
LOC: ER 05:05 → EEVIPCON 05:05 → ER 06:31
DX: S51.012A Laceration without foreign body of left elbow, initial encounter (principal); Y04.8XXA Assault by other bodily force, initial encounter
CPT/HCPCS: 99283; 73080; J3490

== ENCOUNTER 2017-10-21 10:21 | Emergency (ER) | payer MEDICAID ==
[2017-10-21 10:44] VITALS: BP 147/79
--- NOTE | 2017-10-21 12:05 | ER Document Report ---
ED General - General Mode of Arrival: Ambulatory Information source: Patient TRAVEL OUTSIDE OF THE [place] IN LAST 30 DAYS: No - General Chief Complaint: Fall Stated Complaint: FALL,HEAD PAIN Time Seen by Provider: 10/21/17 11:38 Notes: Patient is a 27 year old female who is currently 13 weeks presents to the emergency department due to a mechanical fall and vaginal bleeding onset this morning. Patient states she tripped over a basket this morning and proceeded to hit her head on the side of her bed. Patient states she went to the bathroom later his morning and noticed some vaginal bleeding. Patient also complains of a headache. Patient denies any pelvic or abdominal cramping, lost of consciousness, dizziness, or blurry vision. Patient is A0. Her last menstrual cycle was 2016. Patient is B+ . (JONATHAN ROSA) - Related Data Allergies/Adverse Reactions: No Known Allergies Allergy (Verified 01/15/17 11:48) Past Medical History - General Information source: Patient - Social History Smoking Status: Former Smoker Chew tobacco use (# tins/day): No Frequency of alcohol use: None Drug Abuse: None Family History: Reviewed & Not Pertinent Patient has suicidal ideation: No Patient has homicidal ideation: No - Past Medical History Cardiac Medical History: Reports: Hx Hypertension Past Surgical History: Reports: Hx Section - Immunizations Hx Diphtheria, Pertussis, Tetanus Vaccination: Yes Review of Systems - Review of Systems Constitutional: No symptoms reported EENT: No symptoms reported Cardiovascular: No symptoms reported Respiratory: No symptoms reported Gastrointestinal: No symptoms reported Genitourinary: No symptoms reported Female Genitourinary: See HPI Musculoskeletal: No symptoms reported Skin: No symptoms reported Hematologic/Lymphatic: No symptoms reported Neurological/Psychological: See HPI, Headaches -: Yes All other systems reviewed and negative Physical Exam - Vital signs Vitals: Temp Pulse Resp BP Pulse Ox 98.6 F 80 18 147/79 H 100 10/21/17 10:43 10/21/17 10:43 10/21/17 10:43 10/21/17 10:43 10/21/17 10:43 - Notes Notes: GENERAL: Alert, interacts well. No acute distress. HEAD: Normocephalic. Contusion to the forehead and above the right eyebrow. No step-off, deformities, or bleeding. EYES: Appear normal. Pupils equal, round, and reactive to light. ENT: Moist mucus membranes, tongue midline. NECK: Full range of motion. Supple. Trachea midline. LUNGS: Clear to auscultation bilaterally, no wheezes, rales, or rhonchi. No respiratory distress. HEART: Regular rate and rhythm. No murmurs, gallops, or rubs. ABDOMEN: Soft, non-tender. Non-distended. Normal bowel sounds. EXTREMITIES: Moves all 4 extremities spontaneously. Normal strength. No edema. NEUROLOGICAL: Alert and oriented x3. Normal speech. PSYCH: Normal affect, normal mood. SKIN: Warm, dry, normal turgor. No rashes or lesions noted. (JONATHAN ROSA) Course - Re-evaluation Re-evalutation: 10/21/17 13:[address] Michele in regards to small subchorionic bleed found on ultrasound. Discussed findings with patient and need for follow-up if symptoms worsening for reevaluation otherwise no specific treatment for her subchorionic bleed. (SHOLA TRAN) - Vital Signs Vital signs: Temp Pulse Resp BP Pulse Ox 98.6 F 80 18 147/79 H 100 10/21/17 10:43 10/21/17 10:43 10/21/17 10:43 10/21/17 10:43 10/21/17 10:43 - Laboratory Laboratory results interpreted by me: 10/21/17 12:10 Urine Urobilinogen 2.0 H Urine Ascorbic Acid 40 H Discharge - Discharge Clinical Impression: Subchorionic bleed Qualifiers: Fetus number: single or unspecified fetus Trimester: first trimester Qualified Code(s): O41.8X10 - Other specified disorders of amniotic fluid and membranes, first trimester, not applicable or unspecified Condition: Stable Disposition: HOME, SELF-CARE Additional Instructions: If symptoms are worsening or you began to experience heavy vaginal bleeding please seek medical advice. Follow up with your OBGYN for next scheduled appointment. Forms: Return to Work Scribe Attestation: 10/21/17 13:47 I personally performed the services described in the documentation, reviewed and edited the documentation which was dictated to the scribe in my presence, and it accurately records my words and actions. (JONATHAN ROSA) Scribe Documentation - Scribe Written by Scribe:: Dominick Melendez, 10/21/2017 12:05 acting as scribe for :: Guillermo
[2017-10-21 12:28] LABS: APPEARANCE,URINE SLIGHTLY-CLOUDY; BILIRUBIN,URINE NEGATIVE (NEGATIVE); COLOR,URINE YELLOW; GLUCOSE, URINE NEGATIVE (NEGATIVE); KETONES,URINE NEGATIVE (NEGATIVE); LEUKOCYTE ESTERASE,URINE NEGATIVE (NEGATIVE); NITRITE,URINE NEGATIVE (NEGATIVE); PROTEIN,URINE NEGATIVE (NEGATIVE); URINE SPECIFIC GRAVITY 1.012
--- NOTE | 2017-10-21 13:25 | RADIOLOGY REPORT (SQ) ---
EXAM DESCRIPTION: U/S 1TRIMESTER/1GEST W/DOPPLER COMPLETED DATE/TIME: 10/21/2017 1:02 pm REASON FOR STUDY: fall, 13 weeks, vag bleeding COMPARISON: None. TECHNIQUE: Transabdominal static and realtime grayscale images acquired of the pelvis. Additional se lected spectral and color Doppler images recorded. All images stored on PACs. bHCG: Not applicable. LIMITATIONS: None. FINDINGS: FETUS: Living intrauterine . EGA: 9 week 1 day. STEPHANIE: 05/25/2019. FHR: 155 beats per minute. SUBCHORIONIC BLEED: Yes. SIZE OF BLEED: 0.6 x 1.0 cm. UTERUS: No masses. No anomalies. CERVICAL LENGTH: 2.8 cm. Closed. RIGHT ADNEXA: Normal ovary with normal vascular flow. No adnexal free fluid. Simple cysts, the largest measuring 1.5 cm. LEFT ADNEXA: Normal ovary with normal vascular flow. No adnexal free fluid. No adnexal masses. FREE FLUID: None. OTHER: No other significant finding. IMPRESSION: LIVING INTRAUTERINE . EGA 9 WEEK 1 DAY. SMALL SUBCHORIONIC BLEED. Trimester of : First - 0 to 13 weeks. TECHNICAL DOCUMENTATION: JOB ID: [id number] [employer]- All Rights Reserved
== END 2017-10-21 14:45 | disposition home or self-care (01) ==
LOC: ER 10:21
DX: O41.8X10 Other specified disorders of amniotic fluid and membranes, first trimester, not applicable or unspecified (principal); W01.10XA Fall on same level from slipping, tripping and stumbling with subsequent striking against unspecified object, initial encounter; Y92.009 Unspecified place in unspecified non-institutional (private) residence as the place of occurrence of the external cause; Z3A.13 13 weeks gestation of pregnancy
CPT/HCPCS: 76801; 81001; 93976; 99284

== ENCOUNTER 2018-01-17 10:15 | Emergency (ER) | payer BC, MEDICAID ==
[2018-01-17] MEDS ORDERED: NORMAL SALINE 1000 ML 1,000 ML IV ONE (10:55)
[2018-01-17] MEDS ORDERED: METOCLOPRAMIDE HCL INJ/PF 10 MG/2 ML SDV IV ONE (10:55)
--- NOTE | 2018-01-17 10:56 | ER Document Report ---
ED Medical Screen (RME) - General Chief Complaint: Vomiting Stated Complaint: VOMITING Time Seen by Provider: 01/17/18 10:55 Notes: Patient states that she is currently 5 months . She states she has been on 2 different medications for vomiting. She states she is currently having problems with vomiting as well as bilateral leg pain and lower abdominal pain. No vaginal bleeding or cramping. TRAVEL OUTSIDE OF THE [place] IN LAST 30 DAYS: No - Related Data Allergies/Adverse Reactions: No Known Allergies Allergy (Verified 01/15/17 11:48) Past Medical History - Social History Chew tobacco use (# tins/day): No Frequency of alcohol use: None Drug Abuse: None - Past Medical History Cardiac Medical History: Reports: Hx Hypertension Renal/ Medical History: Denies: Hx Peritoneal Dialysis Past Surgical History: Reports: Hx Section - 2 - Immunizations Hx Diphtheria, Pertussis, Tetanus Vaccination: Yes Physical Exam - Vital signs Vitals: Temp 96.3 F L 01/17/18 10:21 Course - Vital Signs Vital signs: Temp Pulse Resp BP Pulse Ox 96.3 F L 84 18 123/70 100 01/17/18 10:21 01/17/18 10:23 01/17/18 10:40 01/17/18 10:23 01/17/18 10:23
[2018-01-17 12:22] LABS: ABSOLUTE EOSINOPHILS # (AUTO) 0.1 10^3/uL (0.0-0.6); ABSOLUTE LYMPHOCYTES (AUTO) 1.8 10^3/uL (0.5-4.7); ABSOLUTE MONOCYTES (AUTO) 0.4 10^3/uL (0.1-1.4); ABSOLUTE NEUT (AUTO) 6.4 10^3/uL (1.7-8.2); BASOPHILS % (AUTO) 0.4 % (0-2); EOSINOPHILS % (AUTO) 1.2 % (0-6); HEMATOCRIT 35.6 % (36.0-47.0); HEMOGLOBIN 11.5 g/dL (12.0-15.5); LYMPHOCYTES % (AUTO) 20.4 % (13-45); MEAN CORPUSCULAR HEMOGLOBIN 25.9 pg (27.0-33.4); MEAN CORPUSCULAR HGB CONC 32.4 g/dL (32.0-36.0); MEAN CORPUSCULAR VOLUME 80 fl (80-97); MONOCYTES % (AUTO) 4.8 % (3-13); PLATELET COUNT 197 10^3/uL (150-450); RED BLOOD COUNT 4.46 10^6/uL (3.72-5.28); RED CELL DISTRIBUTION WIDTH 14.7 % (11.5-14.0); SEGMENTED NEUTROPHILS % (AUTO) 73.2 % (42-78); TOTAL CELLS COUNTED % (AUTO) 100 %; WHITE BLOOD COUNT 8.7 10^3/uL (4.0-10.5)
[2018-01-17 12:41] LABS: ALANINE AMINOTRANSFERASE 20 U/L (9-52); ALBUMIN 4.1 g/dL (3.5-5.0); ALKALINE PHOSPHATASE 62 U/L (38-126); ANION GAP 12 (5-19); ASPARTATE AMINO TRANSFERASE 22 U/L (14-36); BILIRUBIN,DIRECT 0.3 mg/dL (0.0-0.4); BILIRUBIN,TOTAL 0.3 mg/dL (0.2-1.3); BLOOD UREA NITROGEN 7 mg/dL (7-20); CALCIUM 9.8 mg/dL (8.4-10.2); CARBON DIOXIDE 23 mmol/L (22-30); CHLORIDE 106 mmol/L (98-107); GLUCOSE 68 mg/dL (75-110); POTASSIUM 4.2 mmol/L (3.6-5.0); SODIUM 140.7 mmol/L (137-145); TOTAL PROTEIN 7.3 g/dL (6.3-8.2)
[2018-01-17 13:26] LABS: AMORPHOUS SEDIMENT,URINE TRACE /HPF; APPEARANCE,URINE CLOUDY; BILIRUBIN,URINE NEGATIVE (NEGATIVE); COLOR,URINE YELLOW; GLUCOSE, URINE NEGATIVE (NEGATIVE); KETONES,URINE 20 mg/dL (NEGATIVE); LEUKOCYTE ESTERASE,URINE NEGATIVE (NEGATIVE); NITRITE,URINE NEGATIVE (NEGATIVE); PROTEIN,URINE NEGATIVE (NEGATIVE); URINE SPECIFIC GRAVITY 1.019; UROBILINOGEN,URINE NEGATIVE mg/dL (<2.0)
--- NOTE | 2018-01-17 14:31 | ER Document Report ---
ED GI/ - General Chief Complaint: Vomiting Stated Complaint: VOMITING Time Seen by Provider: 01/17/18 10:55 Notes: The patient is a 27-year-old female, 5 months , presents with nausea, vomiting and bilateral leg cramping. She has tried Diclegis and Phenergan at home without much relief of her nausea or vomiting. She is too tired to work when she takes his medications. She denies abdominal pain, fevers, vaginal bleeding, vaginal discharge, difficulty walking or back pain. TRAVEL OUTSIDE OF THE [place] IN LAST 30 DAYS: No - HPI heart tones (bpm): 145 - Related Data Allergies/Adverse Reactions: No Known Allergies Allergy (Verified 01/15/17 11:48) Past Medical History - General Information source: Patient - Social History Smoking Status: Never Smoker Chew tobacco use (# tins/day): No Frequency of alcohol use: None Drug Abuse: None Family History: Reviewed & Not Pertinent Patient has suicidal ideation: No Patient has homicidal ideation: No - Past Medical History Cardiac Medical History: Reports: Hx Hypertension Renal/ Medical History: Denies: Hx Peritoneal Dialysis Past Surgical History: Reports: Hx Section - 2 - Immunizations Hx Diphtheria, Pertussis, Tetanus Vaccination: Yes Review of Systems - Review of Systems Notes: REVIEW OF SYSTEMS: CONSTITUTIONAL: -fevers, -chills EENT: -eye pain, -difficulty swallowing, -nasal congestion CARDIOVASCULAR: -chest pain, -syncope. RESPIRATORY: -cough, -SOB GASTROINTESTINAL: -abdominal pain, +nausea, +vomiting, -diarrhea GENITOURINARY: -dysuria, -hematuria MUSCULOSKELETAL: -back pain, -neck pain SKIN: -rash or skin lesions. HEMATOLOGIC: -easy bruising or bleeding. LYMPHATIC: -swollen, enlarged glands. NEUROLOGICAL: -altered mental status or loss of consciousness, -headache, - neurologic symptoms PSYCHIATRIC: -anxiety, -depression. ALL OTHER SYSTEMS REVIEWED AND NEGATIVE. Physical Exam - Vital signs Vitals: Temp 96.3 F L 01/17/18 10:21 - Notes Notes: PHYSICAL EXAMINATION: GENERAL: Well-appearing, well-nourished and in no acute distress. HEAD: Atraumatic, normocephalic. EYES: Pupils equal round and reactive to light, extraocular movements intact, sclera anicteric, conjunctiva are normal. ENT: nares patent, oropharynx clear without exudates. Moist mucous membranes. NECK: Normal range of motion, supple without lymphadenopathy LUNGS: Breath sounds clear to auscultation bilaterally and equal. No wheezes rales or rhonchi. HEART: Regular rate and rhythm without murmurs ABDOMEN: Soft, nontender, normoactive bowel sounds. No guarding, no rebound. No masses appreciated. EXTREMITIES: Normal range of motion, no pitting or edema. No cyanosis. NEUROLOGICAL: Cranial nerves grossly intact. Normal speech, normal gait. Normal sensory and motor exams. PSYCH: Normal mood, normal affect. SKIN: Warm, Dry, normal turgor, no rashes or lesions noted. Course - Re-evaluation Re-evalutation: Patient feels much better after IV fluids and Reglan. She is drinking without any nausea or vomiting. Will send home Zofran and follow-up at her OB. Suspect her bilateral muscle aches are from dehydration, as they have resolved after IV fluids. - Vital Signs Vital signs: Temp Pulse Resp BP Pulse Ox 98.4 F 82 16 107/49 L 100 01/17/18 14:49 01/17/18 14:49 01/17/18 14:49 01/17/18 14:49 01/17/18 14:49 - Laboratory Result Diagrams: 01/17/18 11:40 01/17/18 11:40 Laboratory results interpreted by me: 01/17/18 01/17/18 01/17/18 11:40 11:40 13:05 Hgb 11.5 L Hct 35.6 L MCH 25.9 L RDW 14.7 H Glucose 68 L Urine Ketones 20 H Discharge - Discharge Clinical Impression: Nausea and vomiting Qualifiers: Vomiting type: unspecified Vomiting Intractability: non-intractable Qualified Code(s): R11.2 - Nausea with vomiting, unspecified Condition: Stable Disposition: HOME, SELF-CARE Additional Instructions: VOMITING: Vomiting (or nausea without vomiting) can be caused by many other different problems. It can mean that something's wrong with the stomach, such as ulcers or inflammation or the intestinal tract, such as appendicitis. But it can also be a symptom of a problem that has nothing to do with the stomach or intestines. Vomiting is common with severe headaches, earaches, tonsillitis, and kidney infections, etc. We see it with pneumonia or heart attacks. Drugs can cause nausea and vomiting. Many abdominal problems cause vomiting; for example, gallstones, kidney stones, pancreatitis, and intestinal obstruction ( blocked bowels). In most cases, curing the vomiting depends on fixing the problem that caused it. For temporary relief, we may use an anti-nausea medicine. For home use, we can prescribe suppositories, chewable pills, pills that dissolve in the mouth, or liquid anti-nausea drugs. If the vomiting seems to be caused by a problem in the stomach, acid-suppressing drugs may be prescribed as well. It's important to avoid dehydration. Sip small amounts of clear liquids ( soft drinks, tea, broth, etc) . Try to take fluids frequently even if you are vomiting to prevent dehydration. Take increasing amounts of fluid and when liquids are being consumed successfully, advance to small amounts of bland food (toast, soups, mashed potatoes, etc.) until you are able to resume a regular diet. Avoid aspirin, tobacco, and alcohol. If the vomiting worsens, if the problem that's making you vomit worsens, or if there's evidence of bleeding in the stomach (such as black, tarry stool, or bloody or black vomit), you should return immediately. Also, return if abdominal pain worsens or becomes localized to one area or you develop high fever. Call your doctor if you aren't improved in 24 hours. INTRAVENOUS (I V) FLUIDS: As part of your care today, you received intravenous (IV) fluids. IV fluids are administered to patients who are dehydrated or to those who have certain chemical (electrolyte) abnormalities that need correcting. ANTINAUSEA MEDICATION: You have been given a medication to suppress nausea and vomiting. This type of medication can be given as a shot, pill, or suppository. It will usually last for many hours. Pills and shots usually last six to eight hours. For the typical illness, only one or two doses of the medication may be necessary. Mild lightheadedness may occur. This type of medicine can cause drowsiness. Do not drive or operate dangerous machinery while under its influence. Do not mix with alcohol. See your doctor at once if you have muscle spasms or tightness, or uncontrollable motions (particularly of the neck, mouth, or jaw). Persistent vomiting or severe lightheadedness should also be evaluated by the physician. REGLAN (METOCLOPRAMIDE): Reglan has been prescribed. This medicine affects the stomach and intestines. It can be used to treat nausea and vomiting, to prevent reflux of stomach acid up into the esophagus, or to increase the contractions of the stomach and intestines. It is often prescribed for esophagitis, and for paralysis of the stomach in diabetics. Reglan can cause either mild restlessness or drowsiness. You should contact the doctor at once if you become extremely restless, anxious, or cannot sleep, or if you develop uncontrollable motions of the lips, tongue, or jaw. Do not take alcohol with this medicine. Do not drive or operate machinery until you have been taking this medicine long enough to know how it affects you. Call the doctor if you develop abdominal pains, lightheadedness, black stool, or blood in the stool or vomitus. FOLLOW-UP CARE: If you have been referred to a physician for follow-up care, call the physician s office for an appointment as you were instructed or within the next two days. If you experience worsening or a significant change in your symptoms, notify the physician immediately or return to the Emergency Department at any time for re-evaluation. Prescriptions: Metoclopramide HCl [Reglan 10 mg Tablet] 1 - 2 tab PO ASDIR PRN #25 tablet PRN Reason: Forms: Return to Work Referrals: BETH GILBERT MD [ACTIVE STAFF] - Follow up as needed
[2018-01-17 14:53] VITALS: BP 107/49
== END 2018-01-17 14:53 | disposition home or self-care (01) ==
LOC: ER 10:15
DX: O21.9 Vomiting of pregnancy, unspecified (principal); O16.9 Unspecified maternal hypertension, unspecified trimester; O26.899 Other specified pregnancy related conditions, unspecified trimester; R25.2 Cramp and spasm; O99.89 Other specified diseases and conditions complicating pregnancy, childbirth and the puerperium; M79.1 Myalgia; Z3A.00 Weeks of gestation of pregnancy not specified
CPT/HCPCS: 99283; 96374; 36415; 85025; 80053; 81001; J2765; J7030

== ENCOUNTER 2018-04-20 12:18 | Outpatient (CLI) | payer BC, MEDICAID ==
[2018-04-20 13:01] LABS: AMNISURE (ROM) NEGATIVE (NEGATIVE)
[2018-04-20 13:10] LABS: APPEARANCE,URINE CLEAR; BILIRUBIN,URINE NEGATIVE (NEGATIVE); COLOR,URINE STRAW; GLUCOSE, URINE NEGATIVE (NEGATIVE); KETONES,URINE NEGATIVE (NEGATIVE); LEUKOCYTE ESTERASE,URINE NEGATIVE (NEGATIVE); NITRITE,URINE NEGATIVE (NEGATIVE); PROTEIN,URINE NEGATIVE (NEGATIVE); URINE SPECIFIC GRAVITY 1.004; UROBILINOGEN,URINE NEGATIVE mg/dL (<2.0)
[2018-04-20] MEDS ORDERED: ACETAMINOPHEN 325 MG TABLET ONE (13:21)
[2018-04-20] MEDS ORDERED: ACETAMINOPHEN 325 MG TABLET PO ONE (13:27)
[2018-04-20 13:35] LABS: URINE AMPHETAMINES SCREEN NEGATIVE; URINE BARBITURATES SCREEN NEGATIVE; URINE BENZODIAZEPINES SCREEN NEGATIVE; URINE COCAINE SCREEN NEGATIVE; URINE METHADONE SCREEN NEGATIVE; URINE PHENCYCLIDINE SCREEN NEGATIVE
[2018-04-20 13:40] LABS: URINE MARIJUANA (THC) SCREEN UNCONFIRMED POSITIVE
== END 2018-04-20 13:24 | disposition home or self-care (01) ==
LOC: LC 12:18 → EEVIPCON 12:18 → LC 13:24
PROVIDERS: ATTEND Obstetrics & Gynecology Gynecology
PROC: 4A1HXCZ Monitoring of Products of Conception, Cardiac Rate, External Approach (ICD-10-PCS; principal; 2018-04-20)
DX: Z36.89 Encounter for other specified antenatal screening (principal)
CPT/HCPCS: 59025; 84112; 81001; 80307; G0480 ×2; 80349

== ENCOUNTER 2020-05-18 20:38 | Emergency (ER) | payer BC, MEDICAID ==
[2020-05-18] MEDS ORDERED: ONDANSETRON ODT 4 MG TAB (6 TAB/ER DISP) PO PRN (21:55)
[2020-05-18] MEDS ORDERED: BUTALB/ACETAMINOPHEN/CAFFEINE 1 TAB EACH PO ONE (21:55)
--- NOTE | 2020-05-18 22:00 | ER Document Report ---
HPI - HPI Time Seen by Provider: 05/18/20 21:47 Notes: 30-year-old female presenting with 3-day history of headache, abdominal pain, loss of taste and smell, sneezing, nausea. Patient's most concerning symptom is a headache. She denies any fever, sore throat, vomiting or diarrhea. She repor ts having history of hypertension, migraines, diabetes. She has not taken any medications for her symptoms since this morning. - ROS Systems Reviewed and Negative: Yes All other systems reviewed and negative - CONSTITUTIONAL Constitutional: REPORTS: Fever - EENT EENT: REPORTS: Nasal Drainage-Clear - NEURO Neurology: REPORTS: Headache - RESPIRATORY Respiratory: DENIES: Coughing - GASTROINTESTINAL Gastrointestinal: REPORTS: Abdominal Pain - REPRODUCTIVE Reproductive: REPORTS: : - DERM Skin Color: Normal Past Medical History - General Information source: Patient - Social History Smoking Status: Never Smoker Frequency of alcohol use: None Family History: Reviewed & Not Pertinent - Past Medical History Cardiac Medical History: Reports: Hx Hypertension Pulmonary Medical History: Reports: Hx Asthma Renal/ Medical History: Denies: Hx Peritoneal Dialysis Past Surgical History: Reports: Hx Section - 2 - Immunizations Hx Diphtheria, Pertussis, Tetanus Vaccination: Yes Vertical Provider Document - CONSTITUTIONAL Notes: PHYSICAL EXAMINATION: GENERAL: Well-appearing, well-nourished and in no acute distress. HEAD: Atraumatic, normocephalic. EYES: Pupils equal round and reactive to light, extraocular movements intact, conjunctiva are normal. ENT: Nares patent, oropharynx clear without exudates. Moist mucous membranes. NECK: Normal range of motion, supple without lymphadenopathy LUNGS: Breath sounds clear to auscultation bilaterally and equal. No wheezes rales or rhonchi. HEART: Regular rate and rhythm without murmurs ABDOMEN: Soft, nontender, nondistended abdomen. No guarding, no rebound. No masses appreciated. Female : deferred Musculoskeletal: Normal range of motion, no pitting or edema. No cyanosis. NEUROLOGICAL: Cranial nerves grossly intact. Normal speech, normal gait. Normal sensory, motor exams PSYCH: Normal mood, normal affect. SKIN: Warm, Dry, normal turgor, no rashes or lesions noted. - INFECTION CONTROL TRAVEL OUTSIDE OF THE [place] IN LAST 30 DAYS: No Course - Re-evaluation Re-evalutation: Patient appears well, nontoxic. She has multiple symptoms of COVID-19. She will be treated for headache, COVID-19 tested and then discharged home. Strict ED return precautions were discussed, patient verbalized understanding and agreement with same. Discharge - Discharge Clinical Impression: Encounter for laboratory testing for COVID-19 virus, Viral illness Condition: Stable Disposition: HOME, SELF-CARE Additional Instructions: As a person under investigation for COVID-19, the [place] Department of Health and Human Services (division on public health) advises you to adhere to the following guidance until your test results are reported to you. If your test result is positive, you will receive additional information from your provider and your local health department at that time. Remain at home until you are cleared by the health provider or public health authorities. Keep a log of visitors to your home, notify any visitors to your home of your isolation status. If you plan to move to a new address or leave the critical access hospital, notify the local health department in your County. Call your Doctor or seek care if you have an urgent medical need. Before seeking medical care, call him to get instructions from the provider before arriving at the medical office, clinic, or hospital. Notify them that you are being tested for the virus (COVID-19) so that arrangements can be made, as necessary, to prevent transmission to others in the healthcare setting. Next, notify the local health department in your county. If a medical emergency arises and you need to call 911, inform the first responders that you are being tested for the virus that causes COVID-19. Next, notify the local health department in your critical access hospital. Prescriptions: Butalb/Acetaminophen/Caffeine [Fioricet (50-325-40 mg) Tablet] 1 tab PO Q4HP PRN #15 tab PRN Reason: Ondansetron [Zofran Odt 4 mg Tablet] 1 - 2 tab PO Q4H PRN #15 tab.rapdis PRN Reason: For Nausea/Vomiting Forms: Return to Work Referrals: VERITO PURVIS PA [Primary Care Provider] - Follow up as needed
== END 2020-05-18 23:15 | disposition home or self-care (01) ==
LOC: ER 20:38
DX: O98.513 Other viral diseases complicating pregnancy, third trimester (principal); U07.1 COVID-19; R51 Headache; R10.9 Unspecified abdominal pain; R43.8 Other disturbances of smell and taste; R06.7 Sneezing; R11.0 Nausea; O16.3 Unspecified maternal hypertension, third trimester; Z3A.00 Weeks of gestation of pregnancy not specified
CPT/HCPCS: 99283; 87635; J3490; C9803

== ENCOUNTER 2020-05-26 18:58 | Emergency (ER) | payer BC, MEDICAID ==
[2020-05-26 19:11] VITALS: BP 112/66
== END 2020-05-26 22:46 | disposition left against medical advice (07) ==
LOC: ER 18:58
DX: Z53.21 Procedure and treatment not carried out due to patient leaving prior to being seen by health care provider (principal)

== ENCOUNTER 2020-09-01 12:25 | Emergency (ER) | payer OTHER, BC, MEDICAID ==
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
[2020-09-01 14:32] VITALS: BP 128/74
== END 2020-09-01 14:30 | disposition home or self-care (01) ==
LOC: ER 12:25
DX: O26.899 Other specified pregnancy related conditions, unspecified trimester (principal); R07.89 Other chest pain; M54.9 Dorsalgia, unspecified; V69.00XA Driver of heavy transport vehicle injured in collision with unspecified motor vehicles in nontraffic accident, initial encounter; Y92.481 Parking lot as the place of occurrence of the external cause; O99.320 Drug use complicating pregnancy, unspecified trimester; F12.10 Cannabis abuse, uncomplicated; O99.519 Diseases of the respiratory system complicating pregnancy, unspecified trimester; J45.909 Unspecified asthma, uncomplicated; O16.9 Unspecified maternal hypertension, unspecified trimester; Z87.891 Personal history of nicotine dependence; Z3A.00 Weeks of gestation of pregnancy not specified
CPT/HCPCS: 71046; 71120; 72070; 99284

== ENCOUNTER → 2020-10-08 | Outpatient (CLI) | payer BC, MEDICAID ==
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
== END ==
LOC: RAD 14:52
PROVIDERS: ATTEND Family Medicine
DX: M25.531 Pain in right wrist (principal)